=== PATIENT | male | born 1970 | race Hispanic/Latino ===

== ENCOUNTER → 2022-03-24 | Outpatient (CLI) | payer MEDICARE | END | disposition home or self-care (01) | LOC: SHCH 08:54 | PROVIDERS: ATTEND Internal Medicine Cardiovascular Disease | DX: I70.203 Unspecified atherosclerosis of native arteries of extremities, bilateral legs (principal); R01.1 Cardiac murmur, unspecified | CPT/HCPCS: 93925 ==